=== PATIENT | female | born 1985 | race Caucasian/White ===

== ENCOUNTER 2018-04-09 18:53 | Emergency (ER) | payer OTHER ==
[~2018-04-09] VITALS: Ht 152.4 cm; Wt 53.5 kg
[2018-04-09] MEDS ORDERED: CEFDINIR300 MG PO (19:07)
[2018-04-09] MEDS ORDERED: LEXAPRO 10 MG T10 M2 PO (19:07)
[2018-04-09] MEDS ORDERED: ACETAMINOPHEN-1 EAC1 PO (20:16)
[2018-04-09] MEDS ORDERED: PROMETHAZINE V473 ML PO (20:17)
[2018-04-09] MEDS ORDERED: TESSALON PERLE100 MG PO (20:17)
[2018-04-09] MEDS ORDERED: ZPAK PO (20:19)
[2018-04-09 20:31] VITALS: BP 97/63
== END 2018-04-09 20:32 | disposition home or self-care (01) ==
LOC: M.ERS 18:53 → EDSEX 18:53 → M.ERS 20:32
DX: J18.9 Pneumonia, unspecified organism (principal)